=== PATIENT | male | born 1980 | race American Indian/Alaskan Native ===

== ENCOUNTER 2017-10-01 17:36 | Emergency (ER) | payer SELFPAY ==
[2017-10-01 17:44] VITALS: BP 128/89
[2017-10-01] MEDS ORDERED: MOTRIN PO ONE (17:45)
[2017-10-01] MEDS ORDERED: NORCO 5/325 PO ONE (18:29)
[2017-10-01] MEDS ORDERED: VEETIDS PO ONE (18:31)
--- NOTE | 2017-10-01 19:28 | Emergency Department Report ---
HPI - General Chief Complaint: Dental/Oral Time Seen by Provider: 10/01/17 18:21 - HPI HPI: The patient is a 37-year-old male presents for evaluation of mouth and tooth pain. The patient reports right upper mouth pain for the past one day, constant since onset, throbbing in quality, 10/10 in severity, exacerbated with chewing and drinking hot or cold fluids. He has experienced pain on and off for many months due to dental caries. He reports that he has a dental appointment to receive a root canal scheduled for next week. He denies fever, purulent drainage or discharge from the mouth, facial swelling, paresthesia, change in taste, burping swelling, inability to swallow, difficulty tolerating secretions, dyspnea. ED Past Medical Hx - Past Medical History Previous Medical History?: No - Surgical History Past Surgical History?: No - Social History Smoking Status: Never Smoker Substance Use Type: Marijuana - Medications Home Medications: Home Medications Medication Instructions Recorded Confirmed Last Taken Type Acetaminophen/Codeine [Tylenol 1 tab PO Q6H PRN #12 tab 10/01/17 Unknown Rx /Codeine # 3 tab] Ibuprofen [Motrin] 800 mg PO Q8HR PRN #15 tablet 10/01/17 Unknown Rx Penicillin Vk [Veetids TAB] 250 mg PO QID #20 tablet 10/01/17 Unknown Rx ED Review of Systems ROS: Stated complaint: TOOTH PAIN Other details as noted in HPI Constitutional: denies: fever ENT: reports tooth pain denies: throat or neck pain Respiratory: denies: cough, shortness of breath Cardiovascular: denies: chest pain Endocrine: denies unexplained weight loss or gain Gastrointestinal: denies: abdominal pain, nausea Genitourinary: denies: dysuria Musculoskeletal: denies: leg swelling Skin: denies: rash Neurological: denies: headache Hematological/Lymphatic: denies: easy bleeding or easy bruising Psych: denies sadness or hopelessness Physical Exam - Physical Exam Vital Signs: Vital Signs 10/01/17 17:38 Temperature 98 F Pulse Rate 67 Respiratory 15 Rate Blood Pressure 128/89 O2 Sat by Pulse 99 Oximetry Physical Exam: General: well-nourished, well-developed, no acute distress Head: Normocephalic, atraumatic Eyes: normal sclera ENT: Right upper first molar dental carry extending into the pulp present, with mild erythema of the surrounding gingiva, no fluctuance or purulent drainage Mucous membranes are pink and moist Neck: trachea midline, neck supple, No neck stiffness, no cervical adenopathy Respiratory: Breath sounds equal bilaterally, no wheezing, rales, or rhonchi Cardio: S1 and S2 present, no murmurs, rubs, gallops, capillary refill is brisk Musc: No pitting edema Skin: No rash Psych: Normal affect ED Course Vital Signs 10/01/17 17:38 Temperature 98 F Pulse Rate 67 Respiratory 15 Rate Blood Pressure 128/89 O2 Sat by Pulse 99 Oximetry ED Medical Decision Making - Medical Decision Making The patient was seen and examined by myself. The patient is placed on a group reservations coordinator and continuous pulse ox. On initial evaluation, the patient was found to be in no distress. The patient is given pain medicine. Findings of exam are consistent with potential inflammation, dental caries, no abscess at this time. The patient is given a tablet of penicillin VK. The patient was reevaluated and reported that their symptoms were markedly improved. The patient is stable for discharge with outpatient follow-up. The patient is given follow-up and return instructions. The patient expressed understanding and agreed with the plan. The patient is discharged in stable condition. Critical care attestation.: If time is entered above; I have spent that time in minutes in the direct care of this critically ill patient, excluding procedure time. ED Disposition Clinical Impression: Pain due to dental caries, Tooth ache Disposition: - TO HOME OR SELFCARE Is pt being admited?: No Does the pt Need Aspirin: No Condition: Stable Instructions: Dental Caries (ED), Toothache (ED) Prescriptions: Acetaminophen/Codeine [Tylenol /Codeine # 3 tab] 1 tab PO Q6H PRN #12 tab PRN Reason: Pain Ibuprofen [Motrin] 800 mg PO Q8HR PRN #15 tablet PRN Reason: Pain Penicillin Vk [Veetids TAB] 250 mg PO QID #20 tablet Referrals: [facility] [Outside] - 3-5 Days Time of Disposition: 19:20
== END 2017-10-01 19:29 | disposition home or self-care (01) ==
LOC: ED 17:36
DX: K02.9 Dental caries, unspecified (principal); F12.10 Cannabis abuse, uncomplicated
CPT/HCPCS: 99283